=== PATIENT | female | born 1965 | race Caucasian/White ===

== ENCOUNTER 2016-10-19 23:56 | Emergency (ER) | payer OTHER ==
[~2016-10-19] VITALS: Ht 165.1 cm; Wt 79.4 kg
--- NOTE | ~2016-10-19 | EKG ---
[facility] [place] [address] ELECTROCARDIOGRAM REPORT Name: JASVIR TOLENTINO Room #: DEP AMBER [facility]#: [id number] Admission: 10/19/16 Attend Phys: Discharge: 10/20/16 Date of : 65 Report #: [id number] THIS REPORT FOR: //name// [facility] ED Test Date: 2016-10-20 Test Time: 00:06:29 Pat Name: JASVIR TOLENTINO Department: Room: Gender: F Fruit Tester: PORTIA : 1965 Requested By: Wolf Ibarra Order Number: [id number] MD: Measurements Intervals Lee Rate: 74 P: 18 MA: 153 QRS: 29 QRSD: 97 T: -1 QT: 379 QTc: 421 Interpretive Statements Sinus rhythm Low voltage, precordial leads Borderline T abnormalities, inferior leads No previous ECG available for comparison [email or web address] By: 000 000 Chirag Beard MD /EPI
[2016-10-20 00:26] LABS: ABSOLUTE NEUTROPHILS 4.7 thou/uL (1.4-8.2); BASOPHILS 1.3 % (0.0-2.0); EOSINOPHILS 3.5 % (0.0-3.0); HEMATOCRIT 41.1 % (37.0-47.0); HEMOGLOBIN 14.2 gm/dL (12.0-15.0); LYMPHOCYTES 27.8 % (24.0-44.0); MCH 31.2 pg (26.0-34.0); MCHC 34.6 g/dL (28.0-37.0); MCV 89.9 fL (80.0-100.0); MONOCYTES 9.6 % (1.0-8.0); PLATELET COUNT 261 thou/uL (150-400); POLYS 57.8 % (36.0-66.0); RBC 4.57 mil/uL (4.20-5.00); RDW 12.8 % (10.5-14.5); WBC 8.1 thou/uL (4.0-11.0)
[2016-10-20 00:34] LABS: MANUAL DIFF NO
[2016-10-20 00:37] LABS: ANION GAP 7 mmol/L (7-16); BUN 16 mg/dL (7-18); CALCIUM 9.6 mg/dL (8.5-10.1); CHLORIDE 104 mmol/L (98-107); CO2 28 mmol/L (21-32); CREATININE 0.7 mg/dL (0.6-1.0); GLUCOSE 110 mg/dL (74-106); SODIUM 139 mmol/L (136-145)
[2016-10-20 00:44] LABS: ALBUMIN 3.4 g/dL (3.4-5.0); ALKALINE PHOSPHATASE 75 U/L (46-116); SGOT 18 U/L (15-37); SGPT 25 U/L (30-65); TOTAL BILIRUBIN 0.3 mg/dL (<0.1-1.0); TOTAL PROTEIN 7.3 g/dL (6.4-8.2); TROPONIN-I < 0.04 ng/mL (<0.04-0.07)
[2016-10-20 03:26] VITALS: BP 144/92
[2016-10-20] MEDS ORDERED: PANTOPRAZOLE SO40 M1 PO (03:44)
[2016-10-20] MEDS ORDERED: CARAFATE 1 GM TA1 G1 PO (03:44)
== END 2016-10-20 04:03 | disposition home or self-care (01) ==
LOC: ER 23:56
PROVIDERS: Emergency Medicine
DX: R07.9 Chest pain, unspecified (principal); Z85.3 Personal history of malignant neoplasm of breast; Z90.710 Acquired absence of both cervix and uterus

== ENCOUNTER → 2016-10-26 | Outpatient (CLI) | payer OTHER ==
[~2016-10-26] MED LIST: CARAFATE 1 GM TA1 G1 PO; PANTOPRAZOLE SO40 M1 PO
== END ==
LOC: CAT 11:31
DX: Z13.6 Encounter for screening for cardiovascular disorders (principal)

== ENCOUNTER → 2016-12-10 | Outpatient (CLI) | payer OTHER ==
--- NOTE | ~2016-12-10 | 2DMMODE ---
[facility] [address] [place] [address] 2 D/M-MODE ECHOCARDIOGRAM Name: JASVIR TOLENTINO Room #: REG [facility]#: [id number] Admission: 12/10/16 Attend Phys: Bob Ruff MD Discharge: Date of : 65 Date of Service: 12/10/16 1058 Report #: [id number] THIS REPORT FOR: //name// APPROVED REPORT Study performed: 12/10/2016 08:17:29 EXAM: Comprehensive 2D, Doppler, and color-flow Echocardiogram Patient Location: Out-Patient Status: routine Other Information Study Quality: Adequate/breast implants Indications Chest Pain Hx: HLP 2D Dimensions RVDd: 35.88 mm LVEF(%): 70.10 (>50%) IVSd: 10.22 (7-11mm) LVOT Diam: 18.97 (18-24mm) LVDd: 48.93 mm PWd: 7.84 (7-11mm) Ascending Ao: 31.06 (22-36mm) LVDs: 29.51 (25-40mm) Aortic Root: 30.86 mm Ruiz's LVEF: 70.10 % Volumes Left Atrial Volume (Systole) Single Plane 4CH: 39.48 mL Single Plane 2CH: 51.91 mL LA ESV Index: 27.00 mL/m2 Aortic Valve AoV Peak Roly.: 1.51 m/s AO Peak Gr.: 9.10 mmHg LVOT Max P.91 mmHg LVOT Max V: 1.22 m/s LAUREN Vmax: 2.28 cm2 Mitral Valve E/A Ratio: 1.5 MV Decel. Time: 184.73 ms MV E Max Roly.: 0.99 m/s MV A Roly.: 0.67 m/s MV PHT: 53.57 ms [facility] [place] [address] 2 D/M-MODE ECHOCARDIOGRAM Name: JASVIR TOLENTINO Room #: [facility]#: [id number] Admission: 12/10/16 Attend Phys: Bob Ruff MD Discharge: Date of : 65 Date of Service: 12/10/16 1058 Report #: [id number] IVRT: 73.82 ms Pulmonary Valve PV Peak Roly.: 1.18 m/s PV Peak Gr.: 5.57 mmHg Pulmonary Vein P Vein S: 0.71 m/s P Vein A: 0.35 m/s P Vein D: 0.46 m/s P Vein A Dur.: 120.0 msec P Vein S/D Ratio: 1.54 Tricuspid Valve TR Peak Roly.: 1.77 m/s RAP Estimate: 5.00 mmHg TR Peak Gr.: 12.49 mmHg PA Pressure: 17.00 mmHg Left Ventricle The left ventricle is normal size. There is normal LV segmental wall motion. There is normal left ventricular wall thickness. Left ventricular systolic function is normal. LVEF is 60%. Grade II - pseudonormal filling dynamics. Right Ventricle The right ventricle is normal size. The right ventricular systolic function is normal. Atria The left atrium size is normal. The right atrium size is normal. Aortic Valve The aortic valve is normal in structure. No aortic regurgitation is present. There is no aortic valvular stenosis. Mitral Valve The mitral valve is normal in structure. Trace mitral regurgitation. No evidence of mitral valve stenosis. Tricuspid Valve The tricuspid valve is normal in structure. There is trace tricuspid regurgitation. The right atrial pressure is estimated at 5 mmHg. Estimated PAP is 17mmHg. Pulmonic Valve The pulmonary valve is normal in structure. Trace pulmonic regurgitation. [facility] [address] [place] [address] 2 D/M-MODE ECHOCARDIOGRAM Name: JASVIR TOLENTINO Room #: REG CL Debbie#: [id number] Admission: 12/10/16 Attend Phys: Bob Ruff MD Discharge: Date of : 65 Date of Service: 12/10/16 1058 Report #: [id number] Great Vessels The aortic root is normal in size. The ascending aorta is normal in size. IVC is normal in size and collapses >50% with inspiration. Pericardium There is no pericardial effusion. <Conclusion> Left ventricular systolic function is normal. The right ventricle is normal size. The left atrium size is normal. The aortic valve is normal in structure. Trace mitral regurgitation. There is trace tricuspid regurgitation. The right atrial pressure is estimated at 5 mmHg. Estimated PAP is 17mmHg. There is no pericardial effusion. <ELECTRONICALLY SIGNED> By: Bob Ruff MD 12/10/16 1058 1058 1058 Bob Ruff MD /INF
--- NOTE | ~2016-12-10 | EXE ---
[facility] [employer] [place] [address] STRESS ECHOCARDIOGRAM Name: RANDAJASVIR Lisa Room #: REG [facility]#: [id number] Admission: 12/10/16 Attend Phys: Bob Ruff MD Discharge: Date of : 65 Date of Service: 12/10/16 1126 Report #: [id number] THIS REPORT FOR: //name// APPROVED REPORT Exam: Stress Echocardiogram Indication: Chest pain Patient Location: Out-Patient Stress Nurse: Purvi Wen RN HR: 66 bpm Rhythm: NSR Medical History Allergies: No known drug allergies Cardiac Risk Factors: Hyperlipidemia, obesity Procedure The patient underwent an Exercise Stress Test using the Cliff Protocol. Blood pressure, heart rate, and EKG were monitored. An Echocardiogram was performed by aircraft systems technician in four stages in quad fashion. At peak stress, four selected images were obtained and placed side by side with resting images for comparison. Stress Test Details Stress Test: Exercise stress testing was performed using a Cliff protocol. HR Resting HR: 66 bpm Max Heart Rate (APMHR): 169 bpm Max HR Achieved: 173 bpm Target HR (85% APMHR): 143 bpm % of APMHR: 102 Recovery HR: 95 bpm HR response to stress: Normal HR response to stress BP Resting BP: 123/80 mmHg Max BP: 178/80 mmHg Recovery BP: 138/70 mmHg ECG Resting ECG: Sinus Rhythm, nonspecific ST-T abnormalities Stress ECG: Sinus Rhythm, nonspecific ST-T abnormalities ST Change: Non-ischemic [facility] [address] [place] [address] STRESS ECHOCARDIOGRAM Name: RANDAJASVIR Gonzalez Room #: REG [facility]#: [id number] Admission: 12/10/16 Attend Phys: Bob Ruff MD Discharge: Date of : 65 Date of Service: 12/10/16 1126 Report #: [id number] Clinical Reason for Termination: moderate fatigue Stress Symptoms: Dyspnea Exercise duration: 9 min 33 sec Exercise capacity: 11.3 METs Pre-Stress Echo The resting Echocardiogram showed normal left ventricular contractility with an estimated Ejection Fraction of about 60%. Trivial MR and TR. Post-Stress Echo The stress Echocardiogram showed normal left ventricular contractility with an estimated Ejection Fraction of about 70%. Conclusion Clinical Response: Non-ischemic Exercise Capacity: Average Stress ECG Response: Non-ischemic Stress Echo Images: Non-ischemic No clinical, EKG or echocardiographic evidence for ischemia. Other Information Study Quality: Adequate <Conclusion> No clinical, EKG or echocardiographic evidence for ischemia. <ELECTRONICALLY SIGNED> By: Bob Ruff MD 12/10/16 1126 1126 1126 Bob Ruff MD /INF
== END ==
LOC: CV 08:54
DX: R07.9 Chest pain, unspecified (principal)

== ENCOUNTER 2018-10-27 09:21 | Emergency (ER) | payer OTHER ==
[~2018-10-27] VITALS: Ht 152.4 cm; Wt 86.2 kg
[2018-10-27 09:33] LABS: URINE BILIRUBIN NEGATIVE (Negative); URINE BLOOD 3+ (Negative); URINE CLARITY CLOUDY; URINE COLOR ORANGE; URINE GLUCOSE-RANDOM* NEGATIVE (Negative); URINE KETONES NEGATIVE (Negative); URINE NITRITE-REFLEX NEGATIVE (Negative); URINE PROTEIN (DIPSTICK) 1+ (Negative); URINE UROBILINOGEN 0.2 E.U./dl (0.2-1.0)
[2018-10-27 09:34] LABS: URINE LEUKOCYTES-REFLEX 1+ (Negative)
[2018-10-27 09:42] LABS: URINE RBC >20 Many /HPF (0-2)
[2018-10-27 09:45] LABS: TRANSITIONAL EPITHEL CELL 0-3 Few /LPF (None Seen)
[2018-10-27 09:49] LABS: CASTS None Seen /LPF (None Seen); MUCUS 0-3 Light strn/LPF (None Seen); SQUAMOUS 4-10 Moderate /LPF (0-3); URINE WBC-REFLEX 0-5 Rare /HPF (0-5)
[2018-10-27 09:50] LABS: BACTERIA-REFLEX None Seen /HPF (None Seen); CRYSTALS None Seen /LPF (None Seen)
[2018-10-27] MEDS ORDERED: LIPITOR 20 MG T20 M1 PO (10:02)
[2018-10-27 10:13] LABS: ABSOLUTE NEUTROPHILS 4.8 thou/uL (1.4-8.2); BASOPHILS 1.1 % (0.0-2.0); EOSINOPHILS 3.5 % (0.0-3.0); HEMOGLOBIN 14.5 gm/dL (12.0-15.0); LYMPHOCYTES 24.2 % (24.0-44.0); MCH 31.6 pg (26.0-34.0); MCHC 34.5 g/dL (28.0-37.0); MCV 91.4 fL (80.0-100.0); MONOCYTES 7.6 % (1.0-8.0); PLATELET COUNT 247 thou/uL (150-400); POLYS 63.6 % (36.0-66.0); RDW 12.8 % (10.5-14.5); WBC 7.5 thou/uL (4.0-11.0)
[2018-10-27 10:38] LABS: ANION GAP 10 mmol/L (7-16); BUN 18 mg/dL (7-18); CALCIUM 9.6 mg/dL (8.5-10.1); CHLORIDE 105 mmol/L (98-107); CO2 26 mmol/L (21-32); CREATININE 0.7 mg/dL (0.6-1.0); GLUCOSE 101 mg/dL (74-106); POTASSIUM 3.8 mmol/L (3.5-5.1); SODIUM 141 mmol/L (136-145)
[2018-10-27] MEDS ORDERED: ASPIR 8181 MG PO (10:38)
[2018-10-27 10:44] LABS: ALBUMIN 4.1 g/dL (3.4-5.0); DIRECT BILIRUBIN < 0.1 mg/dL (<0.1-0.3); LIPASE 165 U/L (73-393); SGOT 16 U/L (15-37); SGPT 30 U/L (30-65); TOTAL BILIRUBIN 0.5 mg/dL (<0.1-1.0); TOTAL PROTEIN 7.9 g/dL (6.4-8.2)
[2018-10-27] MEDS ORDERED: SENNA-DOCUSATE1 EACH PO (14:14)
[2018-10-27] MEDS ORDERED: IBUPROFEN 600600 M1 PO (14:14)
[2018-10-27] MEDS ORDERED: PHENERGAN 25 MG25 M1 PO (14:14)
[2018-10-27] MEDS ORDERED: FLOMAX0.4 MG PO (14:14)
[2018-10-27] MEDS ORDERED: ZOFRAN ODT4 MG PO (14:14)
[2018-10-27] MEDS ORDERED: NORCO 5-325 TA1 EACH PO (14:14)
[2018-10-27 14:58] VITALS: BP 129/62
== END 2018-10-27 14:15 | disposition home or self-care (01) ==
LOC: ER 09:21
PROVIDERS: Emergency Medicine
DX: N20.1 Calculus of ureter (principal); Z85.3 Personal history of malignant neoplasm of breast; Z90.710 Acquired absence of both cervix and uterus; Z90.13 Acquired absence of bilateral breasts and nipples